=== PATIENT | female | born 1955 | race Caucasian/White ===

== ENCOUNTER 2018-06-03 10:01 | Inpatient (IN) | payer MEDICAID, OTHER ==
[2018-06-03 10:04] VITALS: BMI 26.4
[2018-06-03] MEDS ORDERED: Sodium Chloride 0.9% 1,000 ML IV STA (10:22)
[2018-06-03] MEDS ORDERED: Iohexol 240 (50 ml) PO ONE (10:23)
--- NOTE | 2018-06-03 11:00 | ED PDOC ---
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 denies: Back Pain, Chest Pain, Urinary Symptoms Exacerbating Factors: None Alleviating Factors: None Last Bowel Movement: Today Additional Complaint(s): 63yo female hx gastric bypass many years ago, presents c/o left sided abdominal pain (upper and lower) started last night around 7pm, progressed to nausea and one episode vomiting with diarrhea this morning. Pain sharp, no prior history of same, denies fever, urinary symptoms, hematuria, cough or chest pain. Past Medical History Reviewed: Historical Data, Nursing Documentation, Vital Signs Vital Signs: Last Vital Signs Temp 97.9 F 06/03/18 10:03 Pulse 61 06/03/18 10:03 Resp 16 06/03/18 10:03 BP 158/87 H 06/03/18 10:03 Pulse Ox 100 06/03/18 10:03 - Medical History PMH: Denies: Diabetes (Hx of Dm, resolved s/p Gastric Bypass 2011), Chronic Kidney Disease - Surgical History Surgical History: Cholecystectomy, Other surgeries: gastric bypass - Family History Family History: States: Unknown Family Hx - Living Arrangements Living Arrangements: With Family - Social History Current smoker - smoking cessation education provided: No - Immunization History Hx Influenza Vaccination: No - Home Medications Home Medications: Ambulatory Orders Medication Instructions Recorded Nitrofurantoin Macrocrystals 100 mg PO Q12H #14 cap 03/22/16 [Macrobid] - Allergies Allergies/Adverse Reactions: Allergies Allergy/AdvReac Type Severity Reaction Status Date / Time No Known Allergies Allergy Verified 03/18/16 09:57 Review of Systems Constitutional: Negative for: Fever, Chills, Weight loss Eyes: Negative for: Vision Change ENT: Negative for: Nose Discharge Cardiovascular: Negative for: Chest Pain, Palpitations Respiratory: Negative for: Cough, Shortness of Breath Gastrointestinal: Positive for: Nausea, Vomiting, Abdominal Pain, Diarrhea. Negative for: Constipation, Melena, Hematochezia, Hematemesis Genitourinary Female: Negative for: Dysuria Musculoskeletal: Negative for: Neck Pain, Back Pain Skin: Negative for: Rash, Lesions, Jaundice Neurological: Positive for: Headache. Negative for: Weakness, Numbness, Dizziness Physical Exam - Reviewed Nursing Documentation Reviewed: Yes Vital Signs Reviewed: Yes - Physical Exam Appears: Positive for: Well, Non-toxic, No Acute Distress Head Exam: Positive for: ATRAUMATIC, NORMAL INSPECTION, NORMOCEPHALIC Skin: Positive for: Normal Color, Warm, DRY Eye Exam: Positive for: EOMI, Normal appearance, PERRL ENT: Positive for: Normal ENT Inspection Neck: Positive for: Normal, Painless ROM Cardiovascular/Chest: Positive for: Regular Rate, Rhythm Respiratory: Positive for: CNT, Normal Breath Sounds Gastrointestinal/Abdominal: Positive for: Soft, Tenderness (LUQ and LLQ) Back: Positive for: Normal Inspection Extremity: Positive for: Normal ROM Neurologic/Psych: Positive for: Alert, Oriented - Laboratory Results Result Diagrams: 06/03/18 10:45 06/03/18 10:45 - ECG ECG: Positive for: Interpreted By Ak ECG Rhythm: Positive for: Sinus Bradycardia. Negative for: ST/T Changes Rate: 58 O2 Sat by Pulse Oximetry: 100 Pulse Ox Interpretation: Normal - Radiology X-Ray: Interpreted by Ak X-Ray Interpretation: Other (R elev hemidiaphragm; no infiltrate, no free air) Medical Decision Making Medical Decision Making: workup for acute abdominal pain with vomiting and diarrhea in setting of prior gastric bypass initiated pain medicine, antiemetic and IVF ordered labs reviewed revealing elevated WBC and lactate 2.6 Digital Intern normal UA neg for blood or leuk esterase repeat 3hr lactate improving Accession No. : [id number] Patient Name / ID : DAVID THOMAS / [id number] Exam Date : 06/03/2018 12:01:00 ( Approved ) Study Comment : Sex / Age : F / 63Y Creator : Dontae Morgan MD Dictator : Dontae Morgan MD Truck Driver Rubbish Collector : Angle Roll Operator : Dontae Morgan MD Approver2 : Report Date : 06/03/2018 14:04:34 My Comment : Date of service: 06/03/2018 PROCEDURE: CT Abdomen and Pelvis with Oral contrast. HISTORY: Left abdominal pain vomit, hx gastric bypass COMPARISON: None. TECHNIQUE: Contiguous axial images of the abdomen and pelvis. Oral contrast was administered. No IV contrast given. Coronal and Sagittal reformats generated. Radiation dose: Total exam DLP = 565.19 mGy-cm. This CT exam was performed using one or more of the following dose reduction techniques: Automated exposure control, adjustment of the mA and/or kV according to patient size, and/or use of iterative reconstruction technique. FINDINGS: LOWER THORAX: Heart appears mildly enlarged. No significant pericardial effusion. There is a small hiatal hernia. Mild passive atelectasis both posterior lower lung aguirre. Small localized area of pleural thickening right posterior lower lung field may represent postinflammatory sequela. LIVER: Liver is mildly enlarged measuring nearly 19 cm in CC dimension. These fatty hepatic infiltration. No obvious hepatic mass or collection. Small calcification inferior aspect right lobe liver. GALLBLADDER AND BILE DUCTS: Gallbladder is physiologically distended. No evidence of intraluminal gallbladder calculi. PANCREAS: Unremarkable. No mass. No ductal dilatation. SPLEEN: Unremarkable. No splenomegaly. ADRENALS: Slight nodular appearing adrenal glands. KIDNEYS AND URETERS: There is an approximately 5.2 mm obstructing calculus in the left proximal/mid ureter with left-sided hydronephrosis and infiltration/fluid within the perinephric fat of. Complex appearing 2.7 x 2.5 cm partially exophytic cyst seen arising from the anterior cortex mid/lower pole left kidney.. There is a small approximately 4.6 mm low-attenuation focus anteromedial cortex lower pole right left kidney that exhibits Hounsfield units in the upper 30s that may represent an volume averaging of a hyperdense cyst.. A tiny focus upper pole anterior cortex right kidney. Follow-up of pre and post-contrast MRI of kidneys recommended for further evaluation of these lesions. BLADDER: Urinary bladder is physiologically distended. No evidence of intraluminal urinary bladder calculi.. REPRODUCTIVE: Unremarkable. APPENDIX: Small radiopaque density seen along the inferomedial aspect of the cecum possibly representing changes of prior appendectomy however clinical correlation recommended. BOWEL: Evaluation of the bowel is somewhat limited due to incomplete opacification. Postoperative gastric bypass changes. There is mild dilatation of the proximal small bowel however no definitive evidence to suggest acute mechanical small bowel obstruction. Findings could represent mild ileus of. The distal small bowel loops are not significantly distended however fluid is present within several of these loops; rule out diarrheal illness. There is mild wall thick ening of the distal aspect of the transverse colon descending and sigmoid colon. Findings in part may be secondary to incomplete distension peristalsis and unopacified stool however mild colitis must be considered as well. Six few scattered colonic diverticula seen along the descending and sigmoid colon. PERITONEUM: Unremarkable. No fluid collection. No free air. Small fat containing umbilical hernia. LYMPH NODES: Unremarkable. No enlarged lymph nodes. VASCULATURE: Unremarkable. No aortic aneurysm. Mild aortic atherosclerotic calcification or mural plaque present. BONES: There are fusion changes of the T12 and L1 segments of. Mild multilevel degenerative spondylosis of the lower thoracic and lumbar spine. There are no acute compression fractures nor retropulsed fragments. OTHER FINDINGS: Calcified granulomata both buttocks are present. IMPRESSION: 5.2 mm obstructing calculus proximal/mid left ureter with mild left-sided hydronephrosis. Perinephric infiltration and fluid present. Complex appearing partially exophytic left renal cyst. Smaller sub cm low-attenuation lesion also present left kidney. Follow-up of pre and post-contrast MRI of the kidneys recommended to exclude underlying neoplastic process Findings discussed with Dr. Hilton Gastric bypass changes. Mild dilatation of the proximal small bowel possibly representing ileus. Follow-up plain film radiograph of the abdomen could be performed to assess for passage of contrast material into the colon. Mild wall thickening of the distal transverse, descending 6 and sigmoid colon; rule out mild colitis. Few scattered colonic diverticula 0. Fatty infiltration. Small calcification right lobe liver. Nodular appearing bilateral adrenal glands. additional analgesia required. flomax ordered rocephin ordered after blood cultures obtained Dr Muniz urology operations examiner contacted and aware 220pm Dr Clark hospitalist contacted 230p care transferred Disposition - Clinical Impression Clinical Impression: Severe sepsis, Nephrolithiasis, Renal mass - Patient ED Disposition Is Patient to be Admitted: Yes Counseled Patient/Family Regarding: Studies Performed, Diagnosis, Need For Followup - Disposition Disposition Time: 13:30 Condition: STABLE
[2018-06-03] MEDS ORDERED: Morphine 4 MG/ML VIAL IV STA (11:06)
[2018-06-03 11:17] LABS: VENOUS BLOOD GAS BASE EXCESS -1.4 mmol/L (0.0-2.0); VENOUS BLOOD GAS PCO2 28 mmHg (40-60); VENOUS BLOOD GAS PO2 30 mm/Hg (30-55); VENOUS BLOOD PH 7.48 (7.32-7.43)
[2018-06-03] MEDS ORDERED: Iohexol 240 (50 ml) ONE (11:19)
[2018-06-03 11:24] LABS: BASO # 0.1 K/uL (0.0-0.2); BASO % 0.4 % (0.0-2.0); EOS # 0.1 K/uL (0.0-0.7); EOS % 0.4 % (0.0-4.0); LYMPH # 2.2 K/uL (1.0-4.3); LYMPH % 14.2 % (20.0-40.0); MEAN CORPUSCULAR HEMOGLOBIN 21.9 pg (27.0-31.0); MEAN CORPUSCULAR HGB CONC 30.4 g/dL (33.0-37.0); MEAN PLATELET VOLUME 8.1 fl (7.2-11.7); MONO # 0.7 K/uL (0.0-0.8); MONO % 4.5 % (0.0-10.0); NEUT # 12.4 K/uL (1.8-7.0); NEUT % 80.5 % (50.0-75.0); RBC 4.55 Mil/uL (3.80-5.20); RED CELL DISTRIBUTION WIDTH 19.2 % (11.5-14.5); WHITE BLOOD COUNT 15.4 K/uL (4.8-10.8)
[2018-06-03 11:30] LABS: ALB/GLOB RATIO 1.1 (1.0-2.1); ALBUMIN 4.6 g/dL (3.5-5.0); ALT/SGPT 14 U/L (9-52); AST/SGOT 21 U/L (14-36); BLOOD UREA NITROGEN 16 mg/dl (7-17); CALCIUM 10.3 mg/dL (8.4-10.2); GFR NON-AFRICAN AMERICAN > 60; LIPASE 100 U/L (23-300)
[2018-06-03 11:34] LABS: PROTHROMBIN TIME 11.4 Seconds (9.8-13.1)
[2018-06-03 11:37] LABS: PARTIAL THROMBOPLASTIN TIME 36.3 Seconds (25.6-37.1)
[2018-06-03] MEDS ORDERED: Sodium Chloride 0.9% 50 ML IV ONE (11:51)
[2018-06-03] MEDS ORDERED: Iohexol 300 100 ML IJ ONE (11:51)
[2018-06-03 12:11] LABS: SQUAMOUS EPITHIAL 1 /hpf (0-5); URINE BACTERIA RARE (<OCC); URINE BILIRUBIN NEGATIVE (NEGATIVE); URINE BLOOD NEGATIVE (NEGATIVE); URINE CLARITY CLEAR (Clear); URINE COLOR YELLOW (YELLOW); URINE GLUCOSE (UA) NEG (NEGATIVE); URINE LEUKOCYTE ESTERASE NEG Leu/uL (Negative); URINE PROTEIN NEGATIVE (NEGATIVE); URINE UROBILINOGEN 0.2-1.0 mg/dL (0.2-1.0)
[2018-06-03] MEDS ORDERED: cefTRIAXone (Rocephin) 1 gm Inj ONE (13:51)
[2018-06-03 14:07] LABS: VENOUS BLOOD GAS BASE EXCESS -3.9 mmol/L (0.0-2.0); VENOUS BLOOD GAS PCO2 43 mmHg (40-60); VENOUS BLOOD GAS PO2 30 mm/Hg (30-55); VENOUS BLOOD PH 7.32 (7.32-7.43)
--- NOTE | 2018-06-03 14:08 | CT ---
Date of service: 06/03/2018 PROCEDURE: CT Abdomen and Pelvis with Oral contrast. HISTORY: Left abdominal pain vomit, hx gastric bypass COMPARISON: None. TECHNIQUE: Contiguous axial images of the abdomen and pelvis. Oral contrast was administered. No IV contrast given. Coronal and Sagittal reformats generated. Radiation dose: Total exam DLP = 565.19 mGy-cm. This CT exam was performed using one or more of the following dose reduction techniques: Automated exposure control, adjustment of the mA and/or kV according to patient size, and/or use of iterative reconstruction technique. FINDINGS: LOWER THORAX: Heart appears mildly enlarged. No significant pericardial effusion. There is a small hiatal hernia. Mild passive atelectasis both posterior lower lung aguirre. Small localized area of pleural thickening right posterior lower lung field may represent postinflammatory sequela. LIVER: Liver is mildly enlarged measuring nearly 19 cm in CC dimension. These fatty hepatic infiltration. No obvious hepatic mass or collection. Small calcification inferior aspect right lobe liver. GALLBLADDER AND BILE DUCTS: Gallbladder is physiologically distended. No evidence of intraluminal gallbladder calculi. PANCREAS: Unremarkable. No mass. No ductal dilatation. SPLEEN: Unremarkable. No splenomegaly. ADRENALS: Slight nodular appearing adrenal glands. KIDNEYS AND URETERS: There is an approximately 5.2 mm obstructing calculus in the left proximal/mid ureter with left-sided hydronephrosis and infiltration/fluid within the perinephric fat of. Complex appearing 2.7 x 2.5 cm partially exophytic cyst seen arising from the anterior cortex mid/lower pole left kidney.. There is a small approximately 4.6 mm low-attenuation focus anteromedial cortex lower pole right left kidney that exhibits Hounsfield units in the upper 30s that may represent an volume averaging of a hyperdense cyst.. A tiny focus upper pole anterior cortex right kidney. Follow-up of pre and post-contrast MRI of kidneys recommended for further evaluation of these lesions. BLADDER: Urinary bladder is physiologically distended. No evidence of intraluminal urinary bladder calculi.. REPRODUCTIVE: Unremarkable. APPENDIX: Small radiopaque density seen along the inferomedial aspect of the cecum possibly representing changes of prior appendectomy however clinical correlation recommended. BOWEL: Evaluation of the bowel is somewhat limited due to incomplete opacification. Postoperative gastric bypass changes. There is mild dilatation of the proximal small bowel however no definitive evidence to suggest acute mechanical small bowel obstruction. Findings could represent mild ileus of. The distal small bowel loops are not significantly distended however fluid is present within several of these loops; rule out diarrheal illness. There is mild wall thickening of the distal aspect of the transverse colon descending and sigmoid colon. Findings in part may be secondary to incomplete distension peristalsis and unopacified stool however mild colitis must be considered as well. Six few scattered colonic diverticula seen along the descending and sigmoid colon. PERITONEUM: Unremarkable. No fluid collection. No free air. Small fat containing umbilical hernia. LYMPH NODES: Unremarkable. No enlarged lymph nodes. VASCULATURE: Unremarkable. No aortic aneurysm. Mild aortic atherosclerotic calcification or mural plaque present. BONES: There are fusion changes of the T12 and L1 segments of. Mild multilevel degenerative spondylosis of the lower thoracic and lumbar spine. There are no acute compression fractures nor retropulsed fragments. OTHER FINDINGS: Calcified granulomata both buttocks are present. IMPRESSION: 5.2 mm obstructing calculus proximal/mid left ureter with mild left-sided hydronephrosis. Perinephric infiltration and fluid present. Complex appearing partially exophytic left renal cyst. Smaller sub cm low-attenuation lesion also present left kidney. Follow-up of pre and post-contrast MRI of the kidneys recommended to exclude underlying neoplastic process Findings discussed with Dr. Hilton Gastric bypass changes. Mild dilatation of the proximal small bowel possibly representing ileus. Follow-up plain film radiograph of the abdomen could be performed to assess for passage of contrast material into the colon. Mild wall thickening of the distal transverse, descending 6 and sigmoid colon; rule out mild colitis. Few scattered colonic diverticula 0. Fatty infiltration. Small calcification right lobe liver. Nodular appearing bilateral adrenal glands.
[2018-06-03] MEDS ORDERED: Sodium Chloride 0.9% 1,000 ML IV SCH ×2 (14:30→15:30)
--- NOTE | 2018-06-03 15:04 | CP.PCM.HP ---
<Mingo Jaffe - Last Filed: 06/03/18 16:51> History of Present Illness - History of Present Illness History of Present Illness: 63 y/o F presented to ED complaining of sudden severe abdominal pain that began this morning. Pain is described as sharp/dull, from L flank area radiates to sup rapubic area, constant, moderately improved with administered medications in ER. Pt reports associated chills, 2 episodes of non-bloody non-mucous diarrhea since this morning. No recent trauma. No recent travel. Pt denies sweating, Hx of nephrolithiasis, dysuria, urinary frequency, hematuria, rash, vaginal pruritus, discharge, nausea, vomiting or constipation. NKDA Meds: none PMHx: DM2 but controlled after gastric bypass surgery PSHx: Gastric bypass surgery, uterine fibroid removal, 2x C-Sections, Appendectomy. FHx: NC SHx: Never smoker, no alcohol and no rec drugs. At ED: --Vitals signs stable. No fever. --CBC showed WBC of 15.4, Hgb 10, Plt 661K --CMP was unremarkable; Lipase WNL; troponin negative; U/A unremarkable. --CT Abdomen/pelvis: 5.2mm obstructing calculus proximal/mid L ureter with mild L hydronephrosis. --1x dose of Ceftriaxone and pain management administered. Present on Admission - Present on Admission Any Indicators Present on Admission: No Review of Systems - Constitutional Constitutional: Chills. absent: Fever, Weight Loss - EENT Nose/Mouth/Throat: absent: Dysphagia, Mouth Pain, Sore Throat, Facial Pain, Neck Mass - Cardiovascular Cardiovascular: absent: Chest Pain, Chest Pain at Rest, Dyspnea, Edema - Respiratory Respiratory: absent: Cough, Dyspnea, Hemoptysis - Gastrointestinal Gastrointestinal: Abdominal Pain. absent: Hematemesis, Nausea, Vomiting - Genitourinary Genitourinary: Flank Pain. absent: Difficulty Urinating, Dysuria, Hematuria, Urinary Frequency, Freq UTI Past Patient History - Past Medical History & Family History Past Medical History?: Yes - Past Social History Smoking Status: Never Smoked - CARDIAC Hx Hypertension: No (Hx of HTN, resolved s/p Gastric Bypass 2011) - PULMONARY Hx Respiratory Disorders: No - NEUROLOGICAL Hx Neurological Disorder: No - HEENT Hx HEENT Problems: No - RENAL Hx Chronic Kidney Disease: No - ENDOCRINE/METABOLIC Hx Endocrine Disorders: No - HEMATOLOGICAL/ONCOLOGICAL Hx Blood Disorders: No - INTEGUMENTARY Hx Dermatological Problems: No - MUSCULOSKELETAL/RHEUMATOLOGICAL Hx Musculoskeletal Disorders: Yes Hx Falls: Yes - GASTROINTESTINAL Hx Gastrointestinal Disorders: Yes Other/Comment: HX GASTRIC BYPASS 2012 - GENITOURINARY/GYNECOLOGICAL Hx Genitourinary Disorders: No - PSYCHIATRIC Hx Psychophysiologic Disorder: No Hx Substance Use: No - SURGICAL HISTORY Hx Cholecystectomy: Yes - ANESTHESIA Hx Anesthesia: Yes Hx Anesthesia Reactions: No Hx Malignant Hyperthermia: No Meds Allergies/Adverse Reactions: Allergies Allergy/AdvReac Type Severity Reaction Status Date / Time No Known Allergies Allergy Verified 03/18/16 09:57 Physical Exam - Constitutional Appears: No Acute Distress - Head Exam Head Exam: ATRAUMATIC, NORMAL INSPECTION, NORMOCEPHALIC - Eye Exam Eye Exam: EOMI, Normal appearance - ENT Exam ENT Exam: Mucous Membranes Moist - Neck Exam Neck exam: Positive for: Full Rom, Normal Inspection. Negative for: Meningismus - Respiratory Exam Respiratory Exam: NORMAL BREATHING PATTERN. absent: Rhonchi, Wheezes, Respiratory Distress - Cardiovascular Exam Cardiovascular Exam: REGULAR RHYTHM, +S1, +S2 - GI/Abdominal Exam GI & Abdominal Exam: Normal Bowel Sounds, Soft, Tenderness (suprapubic and LLQ areas. ). absent: Distended, Guarding, Rebound, Rigid - Extremities Exam Extremities exam: Positive for: full ROM. Negative for: calf tenderness, pedal edema - Back Exam Back exam: CVA tenderness (L). absent: CVA tenderness (R), paraspinal tenderness - Neurological Exam Neurological exam: Alert, Oriented x3 Results - Vital Signs Recent Vital Signs: Last Vital Signs Temp 98.8 F 06/03/18 13:48 Pulse 58 L 06/03/18 14:36 Resp 16 06/03/18 13:20 BP 147/78 06/03/18 13:20 Pulse Ox 100 06/03/18 14:36 - Labs Result Diagrams: 06/03/18 10:45 06/03/18 10:45 Labs: Laboratory Results - last 24 hr 06/03/18 06/03/18 06/03/18 10:45 10:45 10:45 WBC 15.4 H RBC 4.55 Hgb 10.0 L Hct 32.8 L MCV 72.0 L MCH 21.9 L MCHC 30.4 L RDW 19.2 H Plt Count 661 H MPV 8.1 Neut % (Auto) 80.5 H Lymph % (Auto) 14.2 L [place] % (Auto) 4.5 Eos % (Auto) 0.4 Baso % (Auto) 0.4 Neut # (Auto) 12.4 H Lymph # (Auto) 2.2 [place] # (Auto) 0.7 Eos # (Auto) 0.1 Baso # (Auto) 0.1 PT 11.4 INR 1.0 APTT 36.3 pO2 VBG pH VBG pCO2 VBG HCO3 VBG Total CO2 VBG O2 Sat (Calc) VBG Base Excess VBG Potassium Glucose Lactate FiO2 Sodium 138 Potassium 3.7 Chloride 105 Carbon Dioxide 20 L Anion Gap 17 BUN 16 Creatinine 0.6 L Est GFR ( Amer) > 60 Est GFR (Non-Af Amer) > 60 Random Glucose 187 H Calcium 10.3 H Total Bilirubin 0.2 AST 21 ALT 14 Alkaline Phosphatase 152 H Troponin I < 0.0120 Total Protein 8.8 H Albumin 4.6 Globulin 4.2 H Albumin/Globulin Ratio 1.1 Lipase 100 Venous Blood Potassium Urine Color Urine Clarity Urine pH Ur Specific [place] Urine Protein Urine Glucose (UA) Urine Ketones Urine Blood Urine Nitrate Urine Bilirubin Urine Urobilinogen Ur Leukocyte Esterase Urine RBC (Auto) Urine Microscopic WBC Ur Squamous Epith Cells Urine Bacteria 06/03/18 06/03/18 06/03/18 11:00 12:00 13:50 WBC RBC Hgb Hct MCV MCH MCHC RDW Plt Count MPV Neut % (Auto) Lymph % (Auto) [place] % (Auto) Eos % (Auto) Baso % (Auto) Neut # (Auto) Lymph # (Auto) [place] # (Auto) Eos # (Auto) Baso # (Auto) PT INR APTT pO2 30 30 VBG pH 7.48 H 7.32 VBG pCO2 28 L 43 VBG HCO3 22.9 20.6 VBG Total CO2 21.8 L 23.5 VBG O2 Sat (Calc) 61.7 52.1 VBG Base Excess -1.4 L -3.9 L VBG Potassium 3.5 L 3.6 Glucose 187 H 193 H Lactate 2.7 H 2.0 FiO2 21.0 21.0 Sodium 136.0 132.0 Potassium Chloride 106.0 103.0 Carbon Dioxide Anion Gap BUN Creatinine Est GFR ( Amer) Est GFR (Non-Af Amer) Random Glucose Calcium Total Bilirubin AST ALT Alkaline Phosphatase Troponin I Total Protein Albumin Globulin Albumin/Globulin Ratio Lipase Venous Blood Potassium 3.5 L 3.6 Urine Color Yellow Urine Clarity Clear Urine pH 7.0 Ur Specific [place] 1.014 Urine Protein Negative Urine Glucose (UA) Neg Urine Ketones 20 Urine Blood Negative Urine Nitrate Negative Urine Bilirubin Negative Urine Urobilinogen 0.2-1.0 Ur Leukocyte Esterase Neg Urine RBC (Auto) < 1 Urine Microscopic WBC 1 Ur Squamous Epith Cells 1 Urine Bacteria Rare Assessment & Plan - Assessment and Plan (Free Text) Assessment: 63 y/o F presented to ED complaining of severe L abdominal and suprapubic pain, admitted for evaluation and management of nephrolithiasis. --CT Abdomen/pelvis: 5.2mm obstructing calculus proximal/mid L ureter with mild L hydronephrosis; and mild colitis. PLAN: >Nephrolithiasis --Afebrile, stable. --CT Abdomen/pelvis: 5.2mm obstructing calculus proximal/mid L ureter with mild L hydronephrosis. --Pain management ordered. --Zofran PRN for nausea and vomiting. --Ceftriaxone IV daily. --Flomax daily --Urology consult, Dr Muniz. >Colitis, mild --CT Abdomen/pelvis: 5.2mm obstructing calculus proximal/mid L ureter with mild L hydronephrosis; and mild colitis. --No more diarrhea since early this morning. --Zofran PRN for nausea and vomiting. --Monitor symptoms >DVT Prophylaxis --SCDs --Lovenox 40mg daily >Diet --Clear liquid <Clark,Ednnis D - Last Filed: 06/03/18 19:19> Results - Vital Signs Recent Vital Signs: Last Vital Signs Temp 98.2 F 06/03/18 19:10 Pulse 90 06/03/18 19:10 Resp 18 06/03/18 19:10 BP 92/57 L 06/03/18 19:10 Pulse Ox 95 06/03/18 19:10 - Labs Result Diagrams: 06/03/18 10:45 06/03/18 10:45 Labs: Laboratory Results - last 24 hr 12/29/18 12/29/18 12/29/18 10:45 10:45 10:45 WBC 15.4 H RBC 4.55 Hgb 10.0 L Hct 32.8 L MCV 72.0 L MCH 21.9 L MCHC 30.4 L RDW 19.2 H Plt Count 661 H MPV 8.1 Neut % (Auto) 80.5 H Lymph % (Auto) 14.2 L [place] % (Auto) 4.5 Eos % (Auto) 0.4 Baso % (Auto) 0.4 Neut # (Auto) 12.4 H Lymph # (Auto) 2.2 [place] # (Auto) 0.7 Eos # (Auto) 0.1 Baso # (Auto) 0.1 PT 11.4 INR 1.0 APTT 36.3 pO2 VBG pH VBG pCO2 VBG HCO3 VBG Total CO2 VBG O2 Sat (Calc) VBG Base Excess VBG Potassium Glucose Lactate FiO2 Sodium 138 Potassium 3.7 Chloride 105 Carbon Dioxide 20 L Anion Gap 17 BUN 16 Creatinine 0.6 L Est GFR ( Amer) > 60 Est GFR (Non-Af Amer) > 60 Random Glucose 187 H Calcium 10.3 H Total Bilirubin 0.2 AST 21 ALT 14 Alkaline Phosphatase 152 H Troponin I < 0.0120 Total Protein 8.8 H Albumin 4.6 Globulin 4.2 H Albumin/Globulin Ratio 1.1 Lipase 100 Venous Blood Potassium Urine Color Urine Clarity Urine pH Ur Specific [place] Urine Protein Urine Glucose (UA) Urine Ketones Urine Blood Urine Nitrate Urine Bilirubin Urine Urobilinogen Ur Leukocyte Esterase Urine RBC (Auto) Urine Microscopic WBC Ur Squamous Epith Cells Urine Bacteria 06/03/18 06/03/18 06/03/18 11:00 12:00 13:50 WBC RBC Hgb Hct MCV MCH MCHC RDW Plt Count MPV Neut % (Auto) Lymph % (Auto) [place] % (Auto) Eos % (Auto) Baso % (Auto) Neut # (Auto) Lymph # (Auto) [place] # (Auto) Eos # (Auto) Baso # (Auto) PT INR APTT pO2 30 30 VBG pH 7.48 H 7.32 VBG pCO2 28 L 43 VBG HCO3 22.9 20.6 VBG Total CO2 21.8 L 23.5 VBG O2 Sat (Calc) 61.7 52.1 VBG Base Excess -1.4 L -3.9 L VBG Potassium 3.5 L 3.6 Glucose 187 H 193 H Lactate 2.7 H 2.0 FiO2 21.0 21.0 Sodium 136.0 132.0 Potassium Chloride 106.0 103.0 Carbon Dioxide Anion Gap BUN Creatinine Est GFR ( Amer) Est GFR (Non-Af Amer) Random Glucose Calcium Total Bilirubin AST ALT Alkaline Phosphatase Troponin I Total Protein Albumin Globulin Albumin/Globulin Ratio Lipase Venous Blood Potassium 3.5 L 3.6 Urine Color Yellow Urine Clarity Clear Urine pH 7.0 Ur Specific [place] 1.014 Urine Protein Negative Urine Glucose (UA) Neg Urine Ketones 20 Urine Blood Negative Urine Nitrate Negative Urine Bilirubin Negative Urine Urobilinogen 0.2-1.0 Ur Leukocyte Esterase Neg Urine RBC (Auto) < 1 Urine Microscopic WBC 1 Ur Squamous Epith Cells 1 Urine Bacteria Rare Attending/Attestation - Attestation I have personally seen and examined this patient.: Yes I have fully participated in the care of the patient.: Yes I have reviewed all pertinent clinical information: Yes Notes (Text): 06/03/18 19:19 Patient seen and examined with resident. Case discussed and agreed with assessment and plan of management
--- NOTE | 2018-06-03 15:22 | RAD ---
Date of service: 06/03/2018 HISTORY: SOB COMPARISON: Comparison chest dated 08/06/2008. FINDINGS: LUNGS: Poor inspiration with low lung volumes, crowded bronchovascular markings and minor bibasilar atelectasis.. PLEURA: No significant pleural effusion identified, no pneumothorax apparent. CARDIOVASCULAR: No aortic atherosclerotic calcification present. Heart size upper limits of normal.. No pulmonary vascular congestion. OSSEOUS STRUCTURES: No significant abnormalities. VISUALIZED UPPER ABDOMEN: Normal. OTHER FINDINGS: None. IMPRESSION: Poor inspiration with low lung volumes, crowded bronchovascular markings and minor bibasilar atelectasis..
[2018-06-03] MEDS ORDERED: Morphine 4 MG/ML VIAL IVP PRN ×2 (18:45→19:00)
[2018-06-03] MEDS: Sodium Chloride 0.9% 1,000 ML IV SCH (18:49)
[2018-06-03] MEDS ORDERED: Morphine 4 MG/ML VIAL IVP STA (20:42)
[2018-06-03] MEDS: Sodium Chloride 0.9% 500 ML IV SCH ×2 (21:00→21:35)
[2018-06-04] MEDS: Sodium Chloride 0.9% 1,000 ML IV SCH ×3 (00:29→15:40)
[2018-06-04] MEDS ORDERED: Influenza Vaccine 60 mcg/0.5 mL SYR (4YR UP) IM ONE (00:58)
[2018-06-04 06:36] LABS: HEMOGLOBIN 7.9 g/dL (12.0-16.0); MEAN CELL VOLUME 71.9 fl (81.0-99.0); MEAN CORPUSCULAR HEMOGLOBIN 22.5 pg (27.0-31.0); MEAN CORPUSCULAR HGB CONC 31.3 g/dL (33.0-37.0); RBC 3.52 Mil/uL (3.80-5.20); RED CELL DISTRIBUTION WIDTH 19.3 % (11.5-14.5); WHITE BLOOD COUNT 19.8 K/uL (4.8-10.8)
[2018-06-04 07:17] LABS: ALBUMIN 3.1 g/dL (3.5-5.0); ALT/SGPT 28 U/L (9-52); AST/SGOT 30 U/L (14-36); BLOOD UREA NITROGEN 15 mg/dl (7-17); CALCIUM 8.9 mg/dL (8.4-10.2); GFR NON-AFRICAN AMERICAN 50
[2018-06-04] MEDS ORDERED: Enoxaparin 40 mg Syringe SC SCH (09:00)
[2018-06-04 09:45] LABS: IRON 10 ug/dL (37-170)
[2018-06-04 09:55] LABS: % IRON SATURATION 2 % (20-55); TOTAL IRON BINDING CAPACITY 416 ug/dL (250-450)
[2018-06-04 10:18] LABS: FERRITIN 13.7 ng/Ml (11.1-264.0)
--- NOTE | 2018-06-04 13:07 | CP.PCM.PN ---
<Abdiel Jackson - Last Filed: 06/04/18 16:41> Subjective - Date & Time of Evaluation Date of Evaluation: 06/04/18 Time of Evaluation: 09:50 - Subjective Subjective: Patient seen and evaluated at bedside in AM. No acute events overnight. Alert, awake, NAD. Left abdominal pain significantly improved compare to yesterday and well controlled with pain medications. Nausea resolved today. Able to tolerate diet well. Patient able to ambulate and go to bathroom W/O difficulties. Urinating well. Denies any blood in urine, dysuria, fever, chills, back pain. Objective - Vital Signs/Intake and Output Vital Signs (last 24 hours): Temp Pulse Resp BP Pulse Ox 98 F 79 18 101/56 L 96 06/04/18 12:16 06/04/18 12:16 06/04/18 12:16 06/04/18 12:16 06/04/18 12:16 - Medications Medications: Current Medications Acetaminophen (Tylenol 325mg Tab) 650 mg PO Q6 PRN PRN Reason: Pain, Mild (1-3) Enoxaparin Sodium (Lovenox) 40 mg SC DAILY [facility]; Protocol Last Admin: 06/04/18 11:46 Dose: 40 mg Ferrous Sulfate (Feosol) 325 mg PO BID [facility] Last Admin: 06/04/18 08:27 Dose: 325 mg Sodium Chloride (Sodium Chloride 0.9%) 1,000 mls @ 1,000 mls/hr IV .Q1H JOSUE Stop: 06/04/18 14:16 Last Admin: 06/03/18 14:30 Dose: 1,000 mls/hr Ceftriaxone Sodium 1 gm/ (Sodium Chloride) 100 mls @ 100 mls/hr IVPB DAILY [facility]; Protocol Last Admin: 06/04/18 08:30 Dose: 100 mls/hr Sodium Chloride (Sodium Chloride 0.9%) 1,000 mls @ 150 mls/hr IV .Q6H40M JOSUE Stop: 06/04/18 15:02 Last Admin: 06/04/18 00:29 Dose: 150 mls/hr Sodium Chloride (Sodium Chloride 0.9%) 500 mls @ 999 mls/hr IV .Q31M JOSUE Last Admin: 06/03/18 21:35 Dose: 999 mls/hr Ibuprofen (Motrin Tab) 400 mg PO Q6 PRN PRN Reason: Fever >100.4 F Last Admin: 06/03/18 17:08 Dose: 400 mg Ketorolac Tromethamine (Toradol) 30 mg IVP Q6 PRN PRN Reason: Pain, severe (8-10) Last Admin: 06/04/18 08:27 Dose: 30 mg Ketorolac Tromethamine (Toradol) 15 mg IVP Q6 PRN PRN Reason: Pain, moderate (4-7) Ondansetron HCl (Zofran Inj) 4 mg IVP Q6 PRN PRN Reason: Nausea/Vomiting Tamsulosin HCl (Flomax) 0.4 mg PO DAILY [facility] Last Admin: 06/04/18 08:29 Dose: 0.4 mg - Labs Labs: 06/04/18 05:30 06/04/18 05:30 PT 11.4 Seconds (9.8-13.1) 06/03/18 10:45 INR 1.0 06/03/18 10:45 APTT 36.3 Seconds (25.6-37.1) 06/03/18 10:45 - Constitutional Appears: No Acute Distress - Head Exam Head Exam: ATRAUMATIC, NORMOCEPHALIC - Eye Exam Eye Exam: EOMI, Normal appearance - ENT Exam ENT Exam: Mucous Membranes Moist - Respiratory Exam Respiratory Exam: Clear to Ausculation Bilateral, NORMAL BREATHING PATTERN. absent: Rales, Rhonchi, Wheezes, Respiratory Distress - Cardiovascular Exam Cardiovascular Exam: REGULAR RHYTHM, +S1, +S2. absent: Tachycardia, Murmur - GI/Abdominal Exam GI & Abdominal Exam: Soft. absent: Distended, Guarding, Rigid Additional comments: LLQ tenderness + - Back Exam Back Exam: absent: CVA tenderness (L), CVA tenderness (R) - Neurological Exam Neurological Exam: Alert, Awake, Oriented x3 - Psychiatric Exam Psychiatric exam: Normal Affect, Normal Mood - Skin Skin Exam: Dry, Intact, Normal Color, Warm Assessment and Plan - Assessment and Plan (Free Text) Assessment: 63 y/o F presented to ED complaining of severe L abdominal and suprapubic pain, admitted for evaluation and management of nephrolithiasis. -CT Abdomen/pelvis: 5.2mm obstructing calculus proximal/mid L ureter with mild L hydronephrosis; and mild colitis. Plan: Nephrolithiasis -Afebrile, stable. -CT Abdomen/pelvis: 5.2mm obstructing calculus proximal/mid L ureter with mild L hydronephrosis. -Pain management ordered. -Zofran PRN for nausea and vomiting. -Ceftriaxone IV daily. -Flomax daily -Urology consult, Dr Muniz. Patient scheduled for stent placement tomorrow. Patient to remain NPO past midnight. Colitis, mild -CT Abdomen/pelvis: 5.2mm obstructing calculus proximal/mid L ureter with mild L hydronephrosis; and mild colitis. -Zofran PRN for nausea and vomiting. -Monitor symptoms Iron deficiency anemia - Asymptomatic - Likely secondary to gastric bypass or decreased PO intake. - CBC H/H 7.9/25.3, MCV 71.9, Retic count 1.8, Iron 10, Ferretin 13.3, TIBC 416, B12 600+ - Start Feosol 325 BID - Monitor CBC, F/U Folate DVT Prophylaxis -SCDs -Lovenox 40mg daily Diet -Clear liquid, NPO post midnight <Dennis Clark D - Last Filed: 06/04/18 17:02> Objective - Vital Signs/Intake and Output Vital Signs (last 24 hours): Temp Pulse Resp BP Pulse Ox 97.8 F 77 18 119/68 95 06/04/18 16:33 06/04/18 16:33 06/04/18 16:33 06/04/18 16:33 06/04/18 16:33 - Medications Medications: Current Medications Acetaminophen (Tylenol 325mg Tab) 650 mg PO Q6 PRN PRN Reason: Pain, Mild (1-3) Enoxaparin Sodium (Lovenox) 40 mg SC DAILY [facility]; Protocol Last Admin: 06/04/18 11:46 Dose: 40 mg Ferrous Sulfate (Feosol) 325 mg PO BID [facility] Last Admin: 06/04/18 08:27 Dose: 325 mg Ceftriaxone Sodium 1 gm/ (Sodium Chloride) 100 mls @ 100 mls/hr IVPB DAILY [facility]; Protocol Last Admin: 06/04/18 08:30 Dose: 100 mls/hr Sodium Chloride (Sodium Chloride 0.9%) 500 mls @ 999 mls/hr IV .Q31M [facility]OS[facility] Last Admin: 06/03/18 21:35 Dose: 999 mls/hr Ibuprofen (Motrin Tab) 400 mg PO Q6 PRN PRN Reason: Fever >100.4 F Last Admin: 06/03/18 17:08 Dose: 400 mg Ketorolac Tromethamine (Toradol) 30 mg IVP Q6 PRN PRN Reason: Pain, severe (8-10) Last Admin: 06/04/18 08:27 Dose: 30 mg Ketorolac Tromethamine (Toradol) 15 mg IVP Q6 PRN PRN Reason: Pain, moderate (4-7) Metronidazole (Flagyl) 500 mg PO Q8 [facility]; Protocol Ondansetron HCl (Zofran Inj) 4 mg IVP Q6 PRN PRN Reason: Nausea/Vomiting Tamsulosin HCl (Flomax) 0.4 mg PO DAILY [facility] Last Admin: 06/04/18 08:29 Dose: 0.4 mg - Labs Labs: 06/04/18 05:30 06/04/18 05:30 PT 11.4 Seconds (9.8-13.1) 06/03/18 10:45 INR 1.0 06/03/18 10:45 APTT 36.3 Seconds (25.6-37.1) 06/03/18 10:45 Attending/Attestation - Attestation I have personally seen and examined this patient.: Yes I have fully participated in the care of the patient.: Yes I have reviewed all pertinent clinical information, including history, physical exam and plan: Yes Notes (Text): 06/04/18 16:56 Patient seen and examined with resident. Case discussed and agreed with assessment. Patient for cystoscopy tomorrow with Dr Muniz for obstructing left ureterolithiasis. Patient is medically cleared as low risk for the procedure. Type and cross ordered for 2 units just in case patient may need them.
--- NOTE | 2018-06-04 20:55 | CON ---
DATE: 06/04/2018 TIME OF CONSULTATION: Roughly 3:10 p.m. BRIEF HISTORY: The patient is a 63-year-old female from [facility] who presents to [facility] ER with a complaint of abdominal pain and renal colic associated with some diarrhea. The patient has a prior history of kidney stones diagnosed 2 years ago with no passage of any stones and no treatment for kidney stones. She currently voids with a usual normal urinary stream. She is status post gastric bypass procedure more than 10 years ago. Additional surgeries include 2 C-sections and an appendectomy. Abdominopelvic CT with p.o. and IV contrast done on 06/03/2018 showed a 5.2 mm obstructing calculus in the left proximal/mid ureter with left-sided hydronephrosis and infiltration/fluid within the perinephric fat. She also has a complex-appearing 2.7 x 2.5 cm partially exophytic cyst seen arising from the anterior cortex mid lower pole left kidney. There is a small approximately 4.6 mm low-attenuation focus anteromedial cortex, lower pole, right kidney that exhibits Hounsfield units in the upper 30s that may represent a volume averaging hyperdense cyst. A tiny focus upper pole anterior cortex of the right kidney. Followup pre- and post-contrast MRI of the kidneys recommended for further evaluation of these lesions. Urinary bladder was physiologically distended and no evidence of any intraluminal urinary bladder calculi. Peritoneum was unremarkable. No fluid collection. No free air. Fat-containing umbilical hernia. Lymph nodes were unremarkable. No enlarged lymph nodes. Vasculature was unremarkable. No aortic aneurysm, mild aortic atherosclerotic calcification or mural plaque present. The bowel evaluation is somewhat limited due to incomplete opacification. Postoperative gastric bypass changes. Mild dilatation of the proximal small bowel, however, no definite evidence to suggest acute mechanical small bowel obstruction. Findings could represent mild ileus. Distal small bowel loops are not significantly distended; however, fluids present within several of these loops, rule out diarrheal illness, which the patient does have. There was mild wall thickening of the distal aspect of the transverse colon and descending colon and sigmoid colon. Findings in part may be secondary to incomplete distention, peristalsis, and unopacified stool; however, mild colitis should be considered as well. Few scattered colonic diverticula seen along the descending and sigmoid colon. Urologic diagnostic impression for this. The patient currently is still complaining of left renal colic and mid lower left abdominal pain. PAST MEDICAL HISTORY: The patient's past medical history includes diabetes mellitus, diagnosed prior to her gastric bypass, and she has so far no diabetes post gastric bypass. She has no other medical history and is currently on no medications at home. SOCIAL HISTORY: She is a nonsmoker and no history of any alcohol use. PHYSICAL EXAMINATION: Today, VITAL SIGNS: Today, 06/04/2018, shows a temperature of 98. Pulse rate 79. Blood pressure 101/56. Respiratory rate 18. O2 saturation on room air 96%. GENERAL: She is a well-developed, well-nourished, obese female. She is alert, oriented. HEENT: Examination grossly within normal limits. NECK: Supple. Thyroid not palpable. EXTREMITIES: She has full range of motion of both upper and lower extremities. No leg edema or calf tenderness present. LABORATORY EVALUATION: Her CBC shows a rising WBC count now 19.8, up from 15.4 on admission. Her hemoglobin is 7.9, hematocrit 25.3 indicating a severe anemia and her platelet count is 451,000 indicating thrombocytosis. Her admission platelet count was 661,000. Her reticulocyte count is 1.8. Her chem profile today, 06/04/2018, shows a sodium of 138. Potassium 4.1. Chloride 109. CO2 of 22. BUN and creatinine 15 and 1.1 respectively with a GFR of 50 indicating chronic kidney disease, stage III. Random glucose was 113. Calcium 8.9. Total bilirubin 0.1. AST 30. ALT 28. Alkaline phosphatase 79. Total protein 6.3. Urinalysis on admission, 06/03/2018, showed the color was yellow, clarity was clear. PH 7. Specific gravity 1.014. Protein negative. Glucose negative. Ketones 20. Blood, nitrite, bilirubin all negative. Urobilinogen is 0.2 to 1. Leukocyte esterase negative. Less than 1 RBC, 1 WBC, and rare bacteria per high-powered field. Blood cultures on 06/03/2018 showed no growth after 24 hours. Urine C and S pending. UROLOGIC DIAGNOSTIC IMPRESSION: 1. Obstructing 5.2 mm proximal to mid ureteral stone with hydronephrosis. 2. Left renal colic. 3. Elevated white blood cell count and rising white blood cell count. PLAN: As discussed with the hospitalist, Dr. Nixon, is to schedule the patient for a cystoscopy, insertion of left ureteral stent. The patient is currently being treated for her GI pathology. Paramjit Muniz MD [facility]
--- NOTE | 2018-06-04 20:59 | CARD ---
APPROVED REPORT Date of service: 06/03/2018 EKG Measurement Heart [id number] <Conclusion> Sinus bradycardia Otherwise normal ECG
[2018-06-05 05:20] LABS: BASO # 0.1 K/uL (0.0-0.2); BASO % 0.6 % (0.0-2.0); EOS # 0.1 K/uL (0.0-0.7); EOS % 0.9 % (0.0-4.0); HEMOGLOBIN 7.5 g/dL (12.0-16.0); LYMPH # 1.8 K/uL (1.0-4.3); LYMPH % 12.5 % (20.0-40.0); MEAN CELL VOLUME 71.9 fl (81.0-99.0); MEAN CORPUSCULAR HEMOGLOBIN 22.3 pg (27.0-31.0); MEAN CORPUSCULAR HGB CONC 31.1 g/dL (33.0-37.0); MEAN PLATELET VOLUME 7.5 fl (7.2-11.7); MONO # 1.1 K/uL (0.0-0.8); MONO % 7.7 % (0.0-10.0); NEUT # 11.1 K/uL (1.8-7.0); NEUT % 78.3 % (50.0-75.0); RBC 3.36 Mil/uL (3.80-5.20); WHITE BLOOD COUNT 14.2 K/uL (4.8-10.8)
[2018-06-05 05:46] LABS: ALB/GLOB RATIO 0.9 (1.0-2.1); ALT/SGPT 13 U/L (9-52); AST/SGOT 26 U/L (14-36); BLOOD UREA NITROGEN 11 mg/dl (7-17); CALCIUM 9.2 mg/dL (8.4-10.2); GFR NON-AFRICAN AMERICAN 50
[2018-06-05] MEDS ORDERED: Ketamine 50 mg/ml Inj (10 ml) ONE (09:08)
[2018-06-05] MEDS ORDERED: Midazolam 2 MG/2 ML VIAL ONE (09:08)
[2018-06-05] MEDS ORDERED: Lidocaine 2% MPF (5 ml) Inj ONE (09:08)
[2018-06-05] MEDS ORDERED: Propofol 10 mg/ml Inj (20 ML) ONE ×3 (09:08→09:58)
[2018-06-05] MEDS ORDERED: ePHEDrine 50 mg/ml Inj ONE (09:09)
[2018-06-05] MEDS ORDERED: Sodium Chloride 0.9% 10 ML IV ONE ×2 (09:10→09:13)
[2018-06-05] MEDS ORDERED: cefTRIAXone (Rocephin) 1 gm Inj ONE (09:17)
[2018-06-05] MEDS ORDERED: Lactated Ringer's 1,000 ML IV ONE (09:24)
[2018-06-05] MEDS ORDERED: Succinylcholine 200 mg/10 ml Inj IV ONE (09:58)
[2018-06-05] MEDS ORDERED: Lactated Ringer's 500 ML IV ONE (10:30)
--- NOTE | 2018-06-05 11:20 | RAD ---
Date of service: 06/05/2018 PROCEDURE: CHEST RADIOGRAPH, 1 VIEW HISTORY: vomiting COMPARISON: 06/03/2018 FINDINGS: LUNGS: Clear. PLEURA: No pneumothorax or pleural fluid seen. CARDIOVASCULAR: No aortic atherosclerotic calcification present. Normal. OSSEOUS STRUCTURES: No significant abnormalities. VISUALIZED UPPER ABDOMEN: Normal. OTHER FINDINGS: None. IMPRESSION: No active disease. No acute/significant interval changes.
--- NOTE | 2018-06-05 11:44 | RAD ---
Date of service: 06/05/2018 PROCEDURE: Intraoperative Fluoroscopy. HISTORY: CYSTOSCOPY FINDINGS: Fluoroscopic assistance was provided for stent placement on the left. Please refer to the operative report from [facility]. Total fluoroscopic time (continuous mode) utilized during the procedure 12 seconds.
[2018-06-05 12:30] LABS: FOLATE 7.5 ng/mL
--- NOTE | 2018-06-05 14:40 | CP.PCM.PN ---
<Mingo Jaffe - Last Filed: 06/05/18 14:37> Subjective - Date & Time of Evaluation Date of Evaluation: 06/05/18 Time of Evaluation: 09:20 - Subjective Subjective: 63 y/o F was seen and examined by bedside. Pt reports feeling OK, denies nausea, vomiting, L flank pain or urinary difficulties. Pt had stent placed today, as pe r urologist pt had a vomiting episode while in the OR. Pt afebrile, tolerating PO with NO acute events overnight. Objective - Vital Signs/Intake and Output Vital Signs (last 24 hours): Temp Pulse Resp BP Pulse Ox 98.1 F 78 20 127/74 94 L 06/05/18 12:08 06/05/18 12:08 06/05/18 12:08 06/05/18 12:08 06/05/18 12:08 Intake and Output: 06/05/18 06/05/18 06:59 18:59 Intake Total 1000 Output Total 700 Balance 300 - Medications Medications: Current Medications Acetaminophen (Tylenol 325mg Tab) 650 mg PO Q6 PRN PRN Reason: Pain, Mild (1-3) Cyanocobalamin (Vitamin B12 1000 Mcg/Ml Inj) 1,000 mcg IM DAILY [facility] Last Admin: 06/05/18 12:23 Dose: 1,000 mcg Enoxaparin Sodium (Lovenox) 40 mg SC DAILY [facility]; Protocol Last Admin: 06/04/18 11:46 Dose: 40 mg Ferrous Sulfate (Feosol) 325 mg PO BID [facility] Last Admin: 06/05/18 08:48 Dose: Not Given Ceftriaxone Sodium 1 gm/ (Sodium Chloride) 100 mls @ 100 mls/hr IVPB DAILY [facility]; Protocol Last Admin: 06/05/18 08:54 Dose: 100 mls/hr Sodium Chloride (Sodium Chloride 0.9%) 500 mls @ 999 mls/hr IV .Q31M [facility] Last Admin: 06/03/18 21:35 Dose: 999 mls/hr Iron Sucrose 100 mg/ Sodium (Chloride) 105 mls @ 105 mls/hr IVPB DAILY [facility] Last Admin: 06/05/18 12:19 Dose: 105 mls/hr Ibuprofen (Motrin Tab) 400 mg PO Q6 PRN PRN Reason: Fever >100.4 F Last Admin: 06/03/18 17:08 Dose: 400 mg Ketorolac Tromethamine (Toradol) 30 mg IVP Q6 PRN PRN Reason: Pain, severe (8-10) Last Admin: 06/04/18 21:14 Dose: 30 mg Ketorolac Tromethamine (Toradol) 15 mg IVP Q6 PRN PRN Reason: Pain, moderate (4-7) Metronidazole (Flagyl) 500 mg PO Q8 [facility]; Protocol Last Admin: 06/05/18 08:48 Dose: Not Given Ondansetron HCl (Zofran Inj) 4 mg IVP Q6 PRN PRN Reason: Nausea/Vomiting Tamsulosin HCl (Flomax) 0.4 mg PO DAILY [facility] Last Admin: 06/04/18 08:29 Dose: 0.4 mg - Labs Labs: 06/05/18 05:17 06/05/18 05:17 PT 11.4 Seconds (9.8-13.1) 06/03/18 10:45 INR 1.0 06/03/18 10:45 APTT 36.3 Seconds (25.6-37.1) 06/03/18 10:45 - Constitutional Appears: Well, No Acute Distress - Head Exam Head Exam: ATRAUMATIC, NORMAL INSPECTION - Eye Exam Eye Exam: EOMI, Normal appearance - ENT Exam ENT Exam: Mucous Membranes Moist - Neck Exam Neck Exam: Full ROM, Normal Inspection - Respiratory Exam Respiratory Exam: NORMAL BREATHING PATTERN. absent: Rhonchi, Wheezes, Respiratory Distress - Cardiovascular Exam Cardiovascular Exam: REGULAR RHYTHM, +S1, +S2 - GI/Abdominal Exam GI & Abdominal Exam: Soft, Normal Bowel Sounds. absent: Distended, Guarding, Rigid, Tenderness, Mass, Rebound - Extremities Exam Extremities Exam: Full ROM, Normal Inspection. absent: Pedal Edema - Back Exam Back Exam: absent: CVA tenderness (L), CVA tenderness (R) - Neurological Exam Neurological Exam: Alert, Awake, Oriented x3 Assessment and Plan - Assessment and Plan (Free Text) Assessment: 63 y/o F presented to ED complaining of severe L abdominal and suprapubic pain, admitted for evaluation and management of nephrolithiasis. -CT Abdomen/pelvis: 5.2mm obstructing calculus proximal/mid L ureter with mild L hydronephrosis; and mild colitis. PLAN: Nephrolithiasis -Afebrile, stable. -Pain management ordered. -Zofran PRN for nausea and vomiting. -Ceftriaxone IV daily. -Flomax daily -Urology consult, Dr Muniz. -Stent placed today by urology team. -As per Urology, ok to discharge if WBC is stable and pt has no emesis vomiting. Pt ca f/u with him within 1-2 weeks. Colitis, mild -CT Abdomen/pelvis: 5.2mm obstructing calculus proximal/mid L ureter with mild L hydronephrosis; and mild colitis. -Zofran PRN for nausea and vomiting. -Monitor symptoms Iron deficiency anemia -Asymptomatic -Likely secondary to gastric bypass or decreased PO intake. -Feosol 325 BID -IM Cyanocobalamin and IV Iron sucrose ordered. DVT Prophylaxis -SCDs -Lovenox 40mg daily Diet -Clear liquid, NPO post midnight <Zohreh Roy - Last Filed: 06/05/18 18:18> Objective - Vital Signs/Intake and Output Vital Signs (last 24 hours): Temp Pulse Resp BP Pulse Ox 100.1 F H 85 20 153/69 H 94 L 06/05/18 17:06 06/05/18 17:06 06/05/18 17:06 06/05/18 17:06 06/05/18 17:06 Intake and Output: 06/05/18 06/05/18 06:59 18:59 Intake Total 1000 Output Total 700 Balance 300 - Medications Medications: Current Medications Acetaminophen (Tylenol 325mg Tab) 650 mg PO Q6 PRN PRN Reason: Pain, Mild (1-3) Cyanocobalamin (Vitamin B12 1000 Mcg/Ml Inj) 1,000 mcg IM DAILY [facility] Last Admin: 06/05/18 12:23 Dose: 1,000 mcg Enoxaparin Sodium (Lovenox) 40 mg SC DAILY [facility]; Protocol Last Admin: 06/04/18 11:46 Dose: 40 mg Ferrous Sulfate (Feosol) 325 mg PO BID [facility] Last Admin: 06/05/18 17:34 Dose: 325 mg Ceftriaxone Sodium 1 gm/ (Sodium Chloride) 100 mls @ 100 mls/hr IVPB DAILY [facility]; Protocol Last Admin: 06/05/18 08:54 Dose: 100 mls/hr Sodium Chloride (Sodium Chloride 0.9%) 500 mls @ 999 mls/hr IV .Q31M [facility] Last Admin: 06/03/18 21:35 Dose: 999 mls/hr Iron Sucrose 100 mg/ Sodium (Chloride) 105 mls @ 105 mls/hr IVPB DAILY [facility] Last Admin: 06/05/18 12:19 Dose: 105 mls/hr Ibuprofen (Motrin Tab) 400 mg PO Q6 PRN PRN Reason: Fever >100.4 F Last Admin: 06/03/18 17:08 Dose: 400 mg Ketorolac Tromethamine (Toradol) 30 mg IVP Q6 PRN PRN Reason: Pain, severe (8-10) Last Admin: 06/04/18 21:14 Dose: 30 mg Ketorolac Tromethamine (Toradol) 15 mg IVP Q6 PRN PRN Reason: Pain, moderate (4-7) Metronidazole (Flagyl) 500 mg PO Q8 [facility]; Protocol Last Admin: 06/05/18 17:35 Dose: 500 mg Ondansetron HCl (Zofran Inj) 4 mg IVP Q6 PRN PRN Reason: Nausea/Vomiting Tamsulosin HCl (Flomax) 0.4 mg PO DAILY [facility] Last Admin: 06/05/18 17:35 Dose: 0.4 mg - Labs Labs: 06/05/18 05:17 06/05/18 05:17 PT 11.4 Seconds (9.8-13.1) 06/03/18 10:45 INR 1.0 06/03/18 10:45 APTT 36.3 Seconds (25.6-37.1) 06/03/18 10:45 Attending/Attestation - Attestation I have personally seen and examined this patient.: Yes I have fully participated in the care of the patient.: Yes I have reviewed all pertinent clinical information, including history, physical exam and plan: Yes
--- NOTE | 2018-06-05 20:43 | OP ---
PROCEDURE DATE: 06/05/2018 UROLOGIC OPERATIVE REPORT PROCEDURE: Patient was placed on the cystoscopy table in a dorsal lithotomy position, prepped and draped in usual sterile fashion with Betadine solution. Under laryngeal mask anesthesia, KUB was obtained which showed a mid to proximal left ureteral calcification. Next, using a Storz 22-[place] cystoscope with 30-degree lens and normal saline as irrigating solution throughout entire procedure, the cystoscope was inserted into the urethra and into the bladder. The bladder was examined in all 4 quadrants. There were no foreign bodies or suspicious lesions seen in the bladder. Both ureteral orifices were normal location, normal configuration on the trigone with clear efflux from the right ureteral orifice and decreased efflux from the left ureteral orifice. Next, a Microvasive 35 thousandth inch 150 cm Sensor wire was placed into the left ureteral orifice and passed up to the area with at least a single coil in the left renal pelvis. Next, a Microvasive [employer] scientific Percuflex VL multi-length ureteral stent was passed over the Sensor wire into the area of the left ureteral orifice and up to the area of the left renal pelvis under direct vision and fluoroscopic control beyond the level of the stone, and actually, the stone appeared to be pushed up into the lower pole calyx of the kidney. With at least single coil seen in the left renal pelvis and the end of the stent seen in the bladder, the sensor wire was removed and two coils were now seen in the bladder. The cystoscope was removed after emptying the bladder of all irrigation fluids. The patient tolerated the procedure well with less than 5 mL of blood loss and was brought to the recovery area in satisfactory condition. Paramjit Muniz MD [facility]
[2018-06-06 02:26] VITALS: O2SAT 95
[2018-06-06 07:01] LABS: BASO # 0.1 K/uL (0.0-0.2); BASO % 0.8 % (0.0-2.0); EOS # 0.1 K/uL (0.0-0.7); EOS % 1.4 % (0.0-4.0); HEMOGLOBIN 7.8 g/dL (12.0-16.0); LYMPH # 1.9 K/uL (1.0-4.3); LYMPH % 19.1 % (20.0-40.0); MEAN CORPUSCULAR HEMOGLOBIN 22.5 pg (27.0-31.0); MEAN CORPUSCULAR HGB CONC 31.3 g/dL (33.0-37.0); MEAN PLATELET VOLUME 7.9 fl (7.2-11.7); MONO # 0.8 K/uL (0.0-0.8); MONO % 7.6 % (0.0-10.0); NEUT # 7.2 K/uL (1.8-7.0); NEUT % 71.1 % (50.0-75.0); NRBC % 0.1 % (0.0-0.0); RBC 3.47 Mil/uL (3.80-5.20); WHITE BLOOD COUNT 10.2 K/uL (4.8-10.8)
[2018-06-06 07:35] LABS: ALBUMIN 3.1 g/dL (3.5-5.0); ALT/SGPT 23 U/L (9-52); AST/SGOT 31 U/L (14-36); BLOOD UREA NITROGEN 6 mg/dl (7-17); CALCIUM 9.3 mg/dL (8.4-10.2); GFR NON-AFRICAN AMERICAN > 60
[2018-06-06 07:45] VITALS: BP 133/67; PULSE 67; RESP 19; TEMP 97.5
--- NOTE | 2018-06-06 10:17 | CP.PCM.DIS ---
<Sabina Wall - Last Filed: 06/06/18 14:32> Provider - Provider Date of Admission: 06/03/18 14:26 Attending physician: Dennis Clark MD Consults: 06/03/18 14:30 Urology Consult Stat Comment: Consulting Provider: Paramjit Muniz Consulting Physician: Paramjit Muniz Reason for Consult: L nephrolithiasis with surrounding fluid and stranding 06/03/18 21:08 Nursing Referral for Palliative Care Routine Comment: Consulting Provider: Charo Macedo Physician Instructions: Reason For Exam: As per Admission Assessment Time Spent in preparation of Discharge (in minutes): 30 Diagnosis - Discharge Diagnosis (1) Nephrolithiasis Status: Acute (2) Colitis Status: Acute (3) Anemia Status: Chronic Hospital Course - Lab Results Lab Results: Micro Results 06/03/18 14:09 Blood-Venous Blood Culture - Preliminary NO GROWTH AFTER 48 HOURS 06/03/18 14:05 Blood-Venous Blood Culture - Preliminary NO GROWTH AFTER 48 HOURS Most Recent Lab Values WBC 10.2 K/uL (4.8-10.8) 06/06/18 05:50 RBC 3.47 Mil/uL (3.80-5.20) L 06/06/18 05:50 Hgb 7.8 g/dL (12.0-16.0) L 06/06/18 05:50 Hct 25.0 % (34.0-47.0) L 06/06/18 05:50 MCV 72.0 fl (81.0-99.0) L 06/06/18 05:50 MCH 22.5 pg (27.0-31.0) L 06/06/18 05:50 MCHC 31.3 g/dL (33.0-37.0) L 06/06/18 05:50 RDW 19.0 % (11.5-14.5) H 06/06/18 05:50 Plt Count 457 K/uL (130-400) H 06/06/18 05:50 MPV 7.9 fl (7.2-11.7) 06/06/18 05:50 Neut % (Auto) 71.1 % (50.0-75.0) 06/06/18 05:50 Lymph % (Auto) 19.1 % (20.0-40.0) L 06/06/18 05:50 [place] % (Auto) 7.6 % (0.0-10.0) 06/06/18 05:50 Eos % (Auto) 1.4 % (0.0-4.0) 06/06/18 05:50 Baso % (Auto) 0.8 % (0.0-2.0) 06/06/18 05:50 Neut # (Auto) 7.2 K/uL (1.8-7.0) H 06/06/18 05:50 Lymph # (Auto) 1.9 K/uL (1.0-4.3) 06/06/18 05:50 [place] # (Auto) 0.8 K/uL (0.0-0.8) 06/06/18 05:50 Eos # (Auto) 0.1 K/uL (0.0-0.7) 06/06/18 05:50 Baso # (Auto) 0.1 K/uL (0.0-0.2) 06/06/18 05:50 Retic Count 1.8 % (0.5-1.5) H 06/04/18 09:30 PT 11.4 Seconds (9.8-13.1) 06/03/18 10:45 INR 1.0 06/03/18 10:45 APTT 36.3 Seconds (25.6-37.1) 06/03/18 10:45 pO2 30 mm/Hg (30-55) 06/03/18 13:50 VBG pH 7.32 (7.32-7.43) 06/03/18 13:50 VBG pCO2 43 mmHg (40-60) 06/03/18 13:50 VBG HCO3 20.6 mmol/L 06/03/18 13:50 VBG Total CO2 23.5 mmol/L (22-28) 06/03/18 13:50 VBG O2 Sat (Calc) 52.1 % (40-65) 06/03/18 13:50 VBG Base Excess -3.9 mmol/L (0.0-2.0) L 06/03/18 13:50 VBG Potassium 3.6 mmol/L (3.6-5.2) 06/03/18 13:50 Sodium 132.0 mmol/L (132-148) 06/03/18 13:50 Chloride 103.0 mmol/L (98-107) 06/03/18 13:50 Glucose 193 mg/dL (65-105) H 06/03/18 13:50 Lactate 2.0 mmol/L (0.7-2.1) 06/03/18 13:50 FiO2 21.0 % 06/03/18 13:50 Sodium 141 mmol/l (132-148) 06/06/18 05:50 Potassium 3.5 MMOL/L (3.6-5.0) L 06/06/18 05:50 Chloride 112 mmol/L (98-107) H 06/06/18 05:50 Carbon Dioxide 25 mmol/L (22-30) 06/06/18 05:50 Anion Gap 8 (10-20) L 06/06/18 05:50 BUN 6 mg/dl (7-17) L 06/06/18 05:50 Creatinine 0.6 mg/dl (0.7-1.2) L 06/06/18 05:50 Est GFR ( Amer) > 60 06/06/18 05:50 Est GFR (Non-Af Amer) > 60 06/06/18 05:50 Random Glucose 118 mg/dL (65-105) H 06/06/18 05:50 Calcium 9.3 mg/dL (8.4-10.2) 06/06/18 05:50 Iron 10 ug/dL (37-170) L 06/04/18 09:30 TIBC 416 ug/dL (250-450) 06/04/18 09:30 % Saturation 2 % (20-55) L 06/04/18 09:30 Transferrin 308.38 mg/dL (206-381) 06/04/18 09:30 Ferritin 13.7 ng/Ml (11.1-264.0) 06/04/18 09:30 Total Bilirubin 0.1 mg/dl (0.2-1.3) L 06/06/18 05:50 AST 31 U/L (14-36) 06/06/18 05:50 ALT 23 U/L (9-52) 06/06/18 05:50 Alkaline Phosphatase 88 U/L (38-126) 06/06/18 05:50 Troponin I < 0.0120 ng/mL (0.00-0.120) 06/03/18 10:45 Total Protein 6.4 G/DL (6.3-8.2) 06/06/18 05:50 Albumin 3.1 g/dL (3.5-5.0) L 06/06/18 05:50 Globulin 3.3 gm/dL (2.2-3.9) 06/06/18 05:50 Albumin/Globulin Ratio 1.0 (1.0-2.1) 06/06/18 05:50 Lipase 100 U/L (23-300) 06/03/18 10:45 Vitamin B12 673 pg/mL (239-931) 06/04/18 09:30 Folate 7.5 ng/mL 06/04/18 09:30 Venous Blood Potassium 3.6 mmol/L (3.6-5.2) 06/03/18 13:50 Urine Color Yellow (YELLOW) 06/03/18 12:00 Urine Clarity Clear (Clear) 06/03/18 12:00 Urine pH 7.0 (5.0-8.0) 06/03/18 12:00 Ur Specific Reading 1.014 (1.003-1.030) 06/03/18 12:00 Urine Protein Negative mg/dL (NEGATIVE) 06/03/18 12:00 Urine Glucose (UA) Neg mg/dL (NEGATIVE) 06/03/18 12:00 Urine Ketones 20 mg/dL (NEGATIVE) 06/03/18 12:00 Urine Blood Negative (NEGATIVE) 06/03/18 12:00 Urine Nitrate Negative (NEGATIVE) 06/03/18 12:00 Urine Bilirubin Negative (NEGATIVE) 06/03/18 12:00 Urine Urobilinogen 0.2-1.0 mg/dL (0.2-1.0) 06/03/18 12:00 Ur Leukocyte Esterase Neg Derrick/uL (Negative) 06/03/18 12:00 Urine RBC (Auto) < 1 /hpf (0-3) 06/03/18 12:00 Urine Microscopic WBC 1 /hpf (0-5) 06/03/18 12:00 Ur Squamous Epith Cells 1 /hpf (0-5) 06/03/18 12:00 Urine Bacteria Rare (<OCC) 06/03/18 12:00 Stool Occult Blood Negative (NEGATIVE) 06/04/18 12:30 C. difficile Ag & Toxin Negative (NEGATIVE) 06/04/18 15:37 Blood Type O POSITIVE 06/04/18 18:05 Antibody Screen Negative 06/04/18 18:05 Crossmatch See Detail 06/04/18 18:05 BBK History Checked Patient has bt 06/04/18 18:05 - Hospital Course Hospital Course: 63 yo F with history DM2 (controlled after gastric bypass surgery), was admitted due to sepsis secondary to nephrolithiasis. Pt came to ED with complaint of severe abdominal pain radiating from L flank to suprapubic area. CT Abdomen/pelvis showed 5.2mm obstructing calculus proximal/mid L ureter with mild L hydronephrosis; and mild colitis. She also had leukocytosis and anemia (likely chronic due to hx gastric bypass, FOBT neg) on labs. She was started on ceftriaxone, flomax, and analgesics, urologist Dr. Muniz consulted - taken to OR for left ureteral stent placement on 06/05/18 - symptom resolved. Leukocytosis resolved as well, and she remained stable throughout the day after stent placement. During her stay she was also given IV venofer. Seen and eval this morning at bedside; reports uneventful overnight. Tolerated PO diet, able to void, pain free. Stable for d/c today with prescriptions for flomax, ciprofloxacin x 5 days, and metronidazole x 5 days. Encouraged to continue taking OTC iron supplements. Encouraged follow up with PMD and urologist Dr. Muniz. Pt verbalized understanding and agreement. Discharge Exam - Head Exam Head Exam: ATRAUMATIC, NORMAL INSPECTION - Eye Exam Eye Exam: Normal appearance - ENT Exam ENT Exam: Mucous Membranes Moist - Neck Exam Neck exam: Full Rom - Respiratory Exam Respiratory Exam: Clear to PA & Lateral, NORMAL BREATHING PATTERN - Cardiovascular Exam Cardiovascular Exam: REGULAR RHYTHM, +S1, +S2 - GI/Abdominal Exam GI & Abdominal Exam: Normal Bowel Sounds, Soft. absent: Tenderness - Extremities Exam Extremities exam: normal inspection - Back Exam Back exam: NORMAL INSPECTION. absent: CVA tenderness (L), CVA tenderness (R) - Neurological Exam Neurological exam: Alert, Oriented x3 - Psychiatric Exam Psychiatric exam: Normal Mood - Skin Skin Exam: Dry, Warm Discharge Plan - Discharge Medications Prescriptions: Ciprofloxacin [Cipro] 500 mg PO Q12 #10 tab metroNIDAZOLE [Flagyl] 500 mg PO Q8 #15 tab Tamsulosin [Flomax] 0.4 mg PO DAILY #30 cap - Follow Up Plan Condition: STABLE Disposition: HOME/ ROUTINE Instructions: Cystoscopy (DC), Ureteral Stent (DC) Additional Instructions: Please take antibiotics as prescribed. Please follow up with Dr. Muniz within 1-2 weeks. Follow up with your PMD in 1 week. May take tylenol for pain control. Return to ED if you experience recurrence of symptoms or change in condition. Referrals: Paramjit Muniz MD [Staff Provider] - <Zohreh Roy - Last Filed: 06/06/18 15:21> Provider - Provider Date of Admission: 06/03/18 14:26 Attending physician: Dennis Clark MD Consults: 06/03/18 14:30 Urology Consult Stat Comment: Consulting Provider: Paramjit Muniz Consulting Physician: Paramjit Muniz Reason for Consult: L nephrolithiasis with surrounding fluid and stranding 06/03/18 21:08 Nursing Referral for Palliative Care Routine Comment: Consulting Provider: Charo Macedo Physician Instructions: Reason For Exam: As per Admission Assessment Hospital Course - Lab Results Lab Results: Micro Results 06/03/18 14:09 Blood-Venous Blood Culture - Preliminary NO GROWTH AFTER 3 DAYS 06/03/18 14:05 Blood-Venous Blood Culture - Preliminary NO GROWTH AFTER 3 DAYS Most Recent Lab Values WBC 10.2 K/uL (4.8-10.8) 06/06/18 05:50 RBC 3.47 Mil/uL (3.80-5.20) L 06/06/18 05:50 Hgb 7.8 g/dL (12.0-16.0) L 06/06/18 05:50 Hct 25.0 % (34.0-47.0) L 06/06/18 05:50 MCV 72.0 fl (81.0-99.0) L 06/06/18 05:50 MCH 22.5 pg (27.0-31.0) L 06/06/18 05:50 MCHC 31.3 g/dL (33.0-37.0) L 06/06/18 05:50 RDW 19.0 % (11.5-14.5) H 06/06/18 05:50 Plt Count 457 K/uL (130-400) H 06/06/18 05:50 MPV 7.9 fl (7.2-11.7) 06/06/18 05:50 Neut % (Auto) 71.1 % (50.0-75.0) 06/06/18 05:50 Lymph % (Auto) 19.1 % (20.0-40.0) L 06/06/18 05:50 [place] % (Auto) 7.6 % (0.0-10.0) 06/06/18 05:50 Eos % (Auto) 1.4 % (0.0-4.0) 06/06/18 05:50 Baso % (Auto) 0.8 % (0.0-2.0) 06/06/18 05:50 Neut # (Auto) 7.2 K/uL (1.8-7.0) H 06/06/18 05:50 Lymph # (Auto) 1.9 K/uL (1.0-4.3) 06/06/18 05:50 [place] # (Auto) 0.8 K/uL (0.0-0.8) 06/06/18 05:50 Eos # (Auto) 0.1 K/uL (0.0-0.7) 06/06/18 05:50 Baso # (Auto) 0.1 K/uL (0.0-0.2) 06/06/18 05:50 Retic Count 1.8 % (0.5-1.5) H 06/04/18 09:30 PT 11.4 Seconds (9.8-13.1) 06/03/18 10:45 INR 1.0 06/03/18 10:45 APTT 36.3 Seconds (25.6-37.1) 06/03/18 10:45 pO2 30 mm/Hg (30-55) 06/03/18 13:50 VBG pH 7.32 (7.32-7.43) 06/03/18 13:50 VBG pCO2 43 mmHg (40-60) 06/03/18 13:50 VBG HCO3 20.6 mmol/L 06/03/18 13:50 VBG Total CO2 23.5 mmol/L (22-28) 06/03/18 13:50 VBG O2 Sat (Calc) 52.1 % (40-65) 06/03/18 13:50 VBG Base Excess -3.9 mmol/L (0.0-2.0) L 06/03/18 13:50 VBG Potassium 3.6 mmol/L (3.6-5.2) 06/03/18 13:50 Sodium 132.0 mmol/L (132-148) 06/03/18 13:50 Chloride 103.0 mmol/L (98-107) 06/03/18 13:50 Glucose 193 mg/dL (65-105) H 06/03/18 13:50 Lactate 2.0 mmol/L (0.7-2.1) 06/03/18 13:50 FiO2 21.0 % 06/03/18 13:50 Sodium 141 mmol/l (132-148) 06/06/18 05:50 Potassium 3.5 MMOL/L (3.6-5.0) L 06/06/18 05:50 Chloride 112 mmol/L (98-107) H 06/06/18 05:50 Carbon Dioxide 25 mmol/L (22-30) 06/06/18 05:50 Anion Gap 8 (10-20) L 06/06/18 05:50 BUN 6 mg/dl (7-17) L 06/06/18 05:50 Creatinine 0.6 mg/dl (0.7-1.2) L 06/06/18 05:50 Est GFR ( Amer) > 60 06/06/18 05:50 Est GFR (Non-Af Amer) > 60 06/06/18 05:50 Random Glucose 118 mg/dL (65-105) H 06/06/18 05:50 Calcium 9.3 mg/dL (8.4-10.2) 06/06/18 05:50 Iron 10 ug/dL (37-170) L 06/04/18 09:30 TIBC 416 ug/dL (250-450) 06/04/18 09:30 % Saturation 2 % (20-55) L 06/04/18 09:30 Transferrin 308.38 mg/dL (206-381) 06/04/18 09:30 Ferritin 13.7 ng/Ml (11.1-264.0) 06/04/18 09:30 Total Bilirubin 0.1 mg/dl (0.2-1.3) L 06/06/18 05:50 AST 31 U/L (14-36) 06/06/18 05:50 ALT 23 U/L (9-52) 06/06/18 05:50 Alkaline Phosphatase 88 U/L (38-126) 06/06/18 05:50 Troponin I < 0.0120 ng/mL (0.00-0.120) 06/03/18 10:45 Total Protein 6.4 G/DL (6.3-8.2) 06/06/18 05:50 Albumin 3.1 g/dL (3.5-5.0) L 06/06/18 05:50 Globulin 3.3 gm/dL (2.2-3.9) 06/06/18 05:50 Albumin/Globulin Ratio 1.0 (1.0-2.1) 06/06/18 05:50 Lipase 100 U/L (23-300) 06/03/18 10:45 Vitamin B12 673 pg/mL (239-931) 06/04/18 09:30 Folate 7.5 ng/mL 06/04/18 09:30 Venous Blood Potassium 3.6 mmol/L (3.6-5.2) 06/03/18 13:50 Urine Color Yellow (YELLOW) 06/03/18 12:00 Urine Clarity Clear (Clear) 06/03/18 12:00 Urine pH 7.0 (5.0-8.0) 06/03/18 12:00 Ur Specific Reading 1.014 (1.003-1.030) 06/03/18 12:00 Urine Protein Negative mg/dL (NEGATIVE) 06/03/18 12:00 Urine Glucose (UA) Neg mg/dL (NEGATIVE) 06/03/18 12:00 Urine Ketones 20 mg/dL (NEGATIVE) 06/03/18 12:00 Urine Blood Negative (NEGATIVE) 06/03/18 12:00 Urine Nitrate Negative (NEGATIVE) 06/03/18 12:00 Urine Bilirubin Negative (NEGATIVE) 06/03/18 12:00 Urine Urobilinogen 0.2-1.0 mg/dL (0.2-1.0) 06/03/18 12:00 Ur Leukocyte Esterase Neg Derrick/uL (Negative) 06/03/18 12:00 Urine RBC (Auto) < 1 /hpf (0-3) 06/03/18 12:00 Urine Microscopic WBC 1 /hpf (0-5) 06/03/18 12:00 Ur Squamous Epith Cells 1 /hpf (0-5) 06/03/18 12:00 Urine Bacteria Rare (<OCC) 06/03/18 12:00 Stool Occult Blood Negative (NEGATIVE) 06/04/18 12:30 C. difficile Ag & Toxin Negative (NEGATIVE) 06/04/18 15:37 Blood Type O POSITIVE 06/04/18 18:05 Antibody Screen Negative 06/04/18 18:05 Crossmatch See Detail 06/04/18 18:05 BBK History Checked Patient has bt 06/04/18 18:05 Attending/Attestation - Attestation I have personally seen and examined this patient.: Yes I have fully participated in the care of the patient.: Yes I have reviewed all pertinent clinical information, including history, physical exam and plan: Yes Notes (Text): 1. Nephrolithiasis with mild Hydronephrosis s/p Ureteral Stent placement - Stent placed - pt to ff up with Dr Muniz - cont Floamx - PO hydration 2. UTI - received IV ceftriaxone - will d/c on PO Cipro 3. Colitis seen on CT scan - pt has no fever, no diarrhea - cont Flagyl and Cipro 4. Anemia , chronic likely due to poor absorption due to Gastric Bypass - received IV Venofer , B12 hots - cont Multivitamins
--- NOTE | 2018-06-07 16:13 | PQF ---
PROVIDER RESPONSE TEXT: Sepsis due to UTI ( POA) REVIEWER QUERY TEXT: Documentation Clarification Your help is requested in clarifying the following clinical documentation. Discharge Summary document ed "pt was admitted due to sepsis." If you can please further specify in the medical record and disch arge summary if diagnosis of sepsis was ruled in or out. The patient's Clinical Indicators include: xxx Query created by: Radha Petty on 06/07/2018 4:05 PM Electronically signed by: Zohreh Roy MD 06/07/2018 4:10 PM
== END 2018-06-06 14:03 | disposition home or self-care (01) | DRG 720 ==
LOC: H.ER 10:01 → H.ERHOLD 14:26 → H.TEL 18:25 → H.MEDSURG1 06-06 02:11
PROC: 0T778DZ Dilation of Left Ureter with Intraluminal Device, Via Natural or Artificial Opening Endoscopic (ICD-10-PCS; principal; 2018-06-05 09:30)
DX: A41.9 Sepsis, unspecified organism (principal); E11.22 Type 2 diabetes mellitus with diabetic chronic kidney disease; N18.3 Chronic kidney disease, stage 3 (moderate); N13.6 Pyonephrosis; N28.1 Cyst of kidney, acquired; D50.8 Other iron deficiency anemias; K52.9 Noninfective gastroenteritis and colitis, unspecified; Z98.84 Bariatric surgery status; I12.9 Hypertensive chronic kidney disease with stage 1 through stage 4 chronic kidney disease, or unspecified chronic kidney disease; K42.9 Umbilical hernia without obstruction or gangrene; K57.30 Diverticulosis of large intestine without perforation or abscess without bleeding; N28.89 Other specified disorders of kidney and ureter; Z87.442 Personal history of urinary calculi; Z90.49 Acquired absence of other specified parts of digestive tract